=== PATIENT | female | born 2000 | race Caucasian/White ===

== ENCOUNTER 2024-10-16 13:52 | Outpatient (CLI) | payer BC, SELFPAY ==
--- NOTE | 2024-10-16 13:52 | OBADM ---
This patient, Alejandra Crocker, admitted to the OB room OB Post 116 for observation. Patient/family oriented to hospital policies and general routines including ID bracelet, bed and alarms, visiting hours, pain management, procedures, bathroom and other care routines, personal items, smoking policy, room service/diet, and visiting hours. Patient/Family are encouraged to report perceived risks to care and to ask questions if they do not understand what they are told or what they should do.
--- OUTSIDE RECORDS SUMMARY | 2024-10-16 14:00 | XMS_ITS | Clinical Summary ---
Author Organization [facility] Address [address] [place] [address] Care Team Providers Care Institutional Aide Name Role Phone Unavailable Primary Care Provider Unavailabl e Social History Tobacco Use Types Packs/Day Years Used Date Smoking Tobacco: Never Assessed Comments Unknown Sex and Gender Information Value Date Recorded Sex Assigned at Not on file Legal Sex Female 12:18 PM CDT Gender Identity Not on file Sexual Orientation Not on file Plan of Treatment Health Maintenance Due Date Last Done Comments Hepatitis C Virus (HCV) Screening 1998 Human Papillomavirus (HPV) Immunization (3 - 3-dose series) 06/03/2016 03/11/2016, 03/09/2015 Pap Smear 2019 Influenza Immunization (#1) 2024 07/29/2021 SARS-COV-2 Immunization ( season) 2024 07/29/2021, 09/17/2020, 08/20/2020 Respiratory Syncytial Virus (RSV) Immunization (Adult) (1 - 1-dose 75+ series) 2073 Hepatitis B Immunization Completed 999, 1998, 1998 DTaP/Tdap/Td Immunization Discontinued 2008, 12/12/2002, 10/29/1999, Additional history exists TdaP Immunization Completed 04/03/2009 Meningococcal Immunization (ACWY) Completed 03/09/2015, 04/03/2009 Pneumococcal Immunization Combined Aged Out No longer eligible based on patient's age to complete this topic Rotavirus Immunization Aged Out No lo nger eligible based on patient's age to complete this topic Insurance [employer] on file [employer] on file
--- OUTSIDE RECORDS SUMMARY | 2024-10-16 14:00 | XMS_ITS | Clinical Summary ---
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 Gender Identity Not on file Sexual Orientation Not on file Plan of Treatment Health Maintenance Due Date Last Done Comments Cervical Cancer Screening Pap Smear (Age 21 to 29) Every 3 Years 1998 Cervical Cancer Screening 1998 Annual Physical 2001 DTaP, Tdap and Td Vaccines (6 - Tdap) 2009 12/12/2002, 10/29/1999, 1998, Additional history exists Hepatitis C 02/20/2016 HPV Vaccines (3 - 3-dose series) 06/03/2016 03/11/2016, 03/09/2015 Hepatitis B Vaccines (1 of 3 - 19+ 3-dose series) 2017 COVID-19 Vaccine (2023- season) 2024 09/17/2020, 08/20/2020 Influenza Adult (#1) 2024 Meningococcal Vaccine Completed 03/09/2015, 009 Meningococcal B Vaccine Aged Out No l onger eligible based on patient's age to complete this topic Pneumococcal Vaccine: Pediatrics (0 to 5 Years) and At-Risk Patients (6 to 64 Years) Aged Out No longer eligible based on patient's age to complete this topic RSV Immunizations Under 20 Months Aged Out No longer eligible based on patient's age to complete this topic
[2024-10-16 14:29] VITALS: BMI 52.2
[2024-10-16 14:30] VITALS: PULSE 122
[2024-10-16 14:36] VITALS: BP 125/43; PULSE 120
[2024-10-16 14:43] LABS: Add Urine Microscopic? YES; Appearance Urine Turbid (Clear); Bacteria Urine 3+ /hpf; Bilirubin Urine Negative (Negative); Blood Urine 2+ (Negative); Color Urine Yellow (Yellow); Glucose Urine UA Negative (Negative); Ketones Urine Negative (Negative); Leukocyte Esterase Ur 3+ LEU/UL (Negative); Need Manual Microscopic Reviewed; Nitrate Urine Negative (Negative); Non Pathogenic Casts 0-2; Protein Urine 2+ mg/dL (Negative); Specific Grav Ur 1.018 (1.001-1.035); Squamous Epithelial Cell Urine Moderate /hpf (Few); WBC Urine >100 /hpf (0-3); pH Urine 6.5 (5.0-9.0)
[2024-10-16 14:45] VITALS: BP 117/69; PULSE 114
[2024-10-16 15:00] VITALS: BP 114/71; BP 117/69; PULSE 114
[2024-10-16 15:24] LABS: OBXCEM ROM Plus Negative (Negative)
--- NOTE | 2024-10-24 11:11 | PM.OBTRLD ---
OB - Triage/Final Diagnosis Visit Information Reason for evaluation: threatened labor Comments/Additional reasons for admission: I have assessed the risk for this patient, Alejandra Crocker, and determined that she would benefit from observation care. Evaluation Laboratory results: Laboratory Tests 10/16/24 10/16/24 14:07 14:45 Urine Color Yellow Urine Appearance Turbid H Urine pH 6.5 Ur Specific [place] 1.018 Urine Protein 2+ H Urine Glucose (UA) Negative Urine Ketones Negative Ur Blood (Man) 2+ H Urine Nitrate Negative Urine Bilirubin Negative Urine Urobilinogen 1.0 Ur Leukocyte Esterase 3+ H Add Ur Microanalysis Reviewed Urine RBC 3-5 H Urine WBC >100 H Ur Squamous Epith Cells Moderate Urine Bacteria 3+ H Urine Casts 0-2 Membranes Rupture Rom plus negative
--- OUTSIDE RECORDS SUMMARY | 2024-10-28 10:07 | XMS_ITS | Clinical Summary ---
Author Organization [facility] Address [address] [place] [address] Care Team Providers Care Supervisor [employer] Name Role Phone Unavailable Primary Care Provider [...]
--- OUTSIDE RECORDS SUMMARY | 2024-10-28 10:07 | XMS_ITS | Clinical Summary ---
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
--- OUTSIDE RECORDS SUMMARY | 2024-10-28 10:07 | XMS_ITS | Clinical Summary ---
Author Organization [facility] Address [address] [place] [address] Care Team Providers Care Bleach Packer Name Role Phone Unknown, Provider Primary Care Provider Unavaila ble Source Comments [facility],non-owned Affiliates and Associated Physician Practices is amultiple site organization consisting of ambulatory clinics and hospital sitesin [place], [place], [place] and [place]. This disclosure is being madepursuant to the Care Everywhere program and may not contain all information available regarding this patient. Last updated 18.[facility] Allergies No known active allergies Medications Be aware that medications may not be up to date on this document. Always verify current medications with the patient. No known medications Encounters Date Type Department Care Team Description 10/19/2024 3:55 PM CDT - 10/19/2024 6:39 [place] [address] Wally Diggs MD Acute cough; Viral syndrome Discharge Disposition: Home or Self Care 10/19/2024 Travel from Last 3 Months Social History Tobacco Use Types Packs/Day Years Used Date Smoking Tobacco: Never Passive Smoke Exposure: Never Smokeless Tobacco: Never Tobacco Cessation:Counseling Given: Not Answered AUDIT-C Answer Date Recorded Q1: How often do you have a drink containing alc ohol? Never 10/19/2024 Average Number of Drinks Not on file 025 Q3: How often do you have si x or more drinks on one occasion? Never 10/19/2024 Sex and Gender Information Value Date Recorded Sex Assigned at Not on file Gender Identity Not on file Sexual Orientation Not on file Last Filed Vital Signs Vital Sign Reading Time Taken Comments Blood Pressure 122/72 10/19/2024 3:29 PM CDT Pulse 98 10/19/2024 6:20 PM CDT Temperature 36.8 C (98.3 F) 10/19/2024 6:20 PM CDT Respiratory Rate 20 10/19/2024 6:20 PM CDT Oxygen Saturation 99% 10/19/2024 6:20 PM CDT Inhaled Oxygen Concentration - - Weight 136.4 kg (300 lb 11.3 oz) 10/19/2024 3:29 PM CDT Height - - Body Mass Index - - Plan of Treatment Health Maintenance Due Date Last Done Comments PAP SMEAR 1998 HIV SCREENING 2013 HPV VACCINE (1 - 3-dose series) 2013 HEPATITIS C SCREENING 02/15/2016 DTAP/TDAP/TD VACCINES (1 - Tdap) 2017 HEPATITIS B VACCINE (1 of 3 - 19+ 3-dose series) 2017 COVID-19 VACCINE ( - 2023-2 5 season) 2024 09/17/2020, 08/20/2020 INFLUENZA VACCINE (#1) 2024 DEPRESSION SCREENING 08/03/2024 ZOSTER VACCINE (1 of 2) 02/20/2048 HIB VACCINE Aged Out No longer eligi ble based on patient's age to complete this topic MENINGOCOCCAL (Group B) VACCINE SHARED DECISION-MAKING Aged Out No longer eligible based on patient's age to complete this topic MENINGOCOCCAL GROUPS A/C/Y/W VACCINE Aged Out No longer eligible b ased on patient's age to complete this topic PNEUMOCOCCAL VACCINE Aged Out No long er eligible based on patient's age to complete this topic Procedures Procedure Name Priority Date/Time Associated Diagnosis Comments XR CHEST 2VW STAT 10/19/2024 5:41 PM CDT Acute cough SARS-COV-2 (COVID-19) FLU A/B RSV PCR RAPID STAT 10/19/2024 4:33 PM CDT from Last 3 Months Results * XR CHEST 2VW (10/19/2024 5:41 PM CDT) Anatomical Region Laterality Modality Chest Computed Radiogr aphy 10/19/2024 5:24 PM CDT Impressions 10/20/2024 8:09 AM CDT Normal chest. Reading Radiologist: AADM WATSON on 10/20/2024 at 8:09 AM Narrative 10/20/2024 8:09 AM CDT INDICATION: Acute cough COMPARISON: None available. TECHNIQUE: Frontal and lateral radiographs of the chest. FINDINGS: The heart is normal in size. The lungs are clear. There is no pneumothorax or pleural effusion. The upper abdomen is normal. No acute osseous abnormality is seen. Procedure Note Adam Watson MD - 10/20/2024 INDICATION: Acute cough COMPARISON: None available. TECHNIQUE: Frontal and lateral radiographs of the chest. FINDINGS: The heart is normal in size. The lungs are clear. There is no pneumothorax or pleural effusion. The upper abdomen is normal. No acute osseous abnormality is seen. IMPRESSION Normal chest. Reading Radiologist: ADAM WATSON on 10/20/2024 at 8:09 AM Wally Diggs MD DIAGNOSTIC IMAGING O RDERABLES * SARS-COV-2 (COVID-19) FLU A/B RSV PCR RAPID (10/19/2024 4:33 PM CDT) COVID-19 PCR Not detected Not detected 10/20/19 5:50 PM CDT [facility] Influenza A PCR Not detected Not detected 10/19/2024 5:50 PM CDT [facility] Influenza B PCR Not detected Not detected 10/19/2024 5:50 PM CDT [facility] RSV PCR Not detected Not detected 10/19/2024 5:50 PM CDT [facility] Microbiology SPECIMEN FROM NASOPHARYNGEAL STRUCTURE / Unknown Collection / Unknown 10/19/2024 4:33 PM CDT 10/19/2024 4:48 PM CDT Narrative [facility] - 10/19/2024 5:50 PM CDT This nucleic acid amplification assay has been authorized by the Food and Drug administration (FDA) under an Emergency Use Authorization (EUA). This test is only authorized for the duration of time the declaration that circumstances exist justifying the authorization of emergency use of in vitro diagnostic tests for detection of SARS-CoV-2 virus and/or diagnosis of COVID-19 infection under section 564(b)(1) of the Act, 21 U.S.C 360bbb-3 (b)(1), unless the authorization is terminated or revoked sooner. Fact Sheets for this EUA assay are available upon request. Wally Digsg MD LAB - MICROBIOLOGY O RDERABLES [facility] [address] [place] [address], [facility] [phone] from Last 3 Months Care Teams Bleach Packer Relationship Specialty Start Date End Date Unknown, Provider PCP - General 10/19/24
== END 2024-10-16 15:15 | disposition home or self-care (01) ==
LOC: ANHOBOP 10-28 09:31 → ANHOBPP 10-28 09:31
PROVIDERS: Visit Provider Obstetrics & Gynecology Gynecology
DX: O47.02 False labor before 37 completed weeks of gestation, second trimester (principal); Z3A.25 25 weeks gestation of pregnancy
CPT/HCPCS: 59025; 81001; 84112; 87086; 99199

== ENCOUNTER 2024-10-17 09:51 | Inpatient (IN) | payer BC, SELFPAY ==
[2024-10-17] VITALS (62 sets, daily range): BP systolic 72–137; BP diastolic 51–101; PULSE 101–143; RESP 18; TEMP 36.2–37.5; O2SAT 93–100; BMI 53.8; BMI 52.1
--- NOTE | ~2024-10-17 | US_ITS ---
EXAMINATION: US OB limited DATE: 10/17/2024 13:56 INDICATION: Assess well-being, amniotic fluid index and cervical length during 25th week of pre gnancy. TECHNIQUE: Real-time ultrasound of the pelvis was performed. The interpreting radiologist was not pre sent for the study. COMPARISON: None. FINDINGS: There is a single living fetus in vertex presentation. The placenta is anterior. The cervix appears short measuring approximately 0.5 cm in length. heart rate is 159 beats per minute (bpm). The a mniotic fluid index is 17.3 cm, which is normal (5th%-95%: 9.7-22.1 cm at C5 weeks estimated gestatio nal age). IMPRESSION: 1. Single living fetus in vertex presentation with heart rate of 159 bpm. 2. Significantly shortened cervical length of 0.[address] Brock discussed these findings with Dr. Henrry Spears at 2:05 PM. 3. Normal amniotic index of 17.3 cm. Reviewed, dictated and finalized at location A. IMPRESSION: 1. Single living fetus in vertex presentation with heart rate of 159 bpm . 2. Significantly shortened cervical length of 0.[address] Brock discussed th dennis findings with Dr. Henrry Spears at 2:05 PM. 3. Normal amniotic index of 17.3 cm.
--- NOTE | ~2024-10-17 | US_ITS ---
Renal-Bladder ultrasound Clinical History: Abdominal pain, UTI Technique: Real-time sonographic imaging of the kidneys and urinary bladder was performed. Findings: The right kidney measures 13.5 cm in length and the left kidney measures 13.2 cm. There is no hydronephrosis or renal calculus identified. Renal cortical echogenicity is within normal limits. No renal mass lesion is identified. The urinary bladder is moderately distended at the time of this exam. No intraluminal echoes are iden tified. No abnormal wall thickening is seen. Impression: Unremarkable ultrasound of the kidneys and urinary bladder. Reviewed, dictated and finalized at location M. Impression: Unremarkable ultrasound of the kidneys and urinary bladder.
--- NOTE | 2024-10-17 09:51 | LDADM ---
Addendum entered by Yo Baeza RN 10/17/24 16:55: Docuementation done is [employer] on arrival. Original Note: This patient, Alejandra Crocker, was admitted to Labor/Delivery/Recovery 106 on 10/17/24 at 09:51. Plans for labor, pain management and were discussed with patient. Patient/family oriented to hospital policies and general routines including ID bracelet, bed and alarms, visiting hours, pain management, procedures, bathroom and other care routines, personal items, smoking policy, room service/diet and guest tray routines, infant security routines, and visiting hours. Patient/Family are encouraged to report perceived risks to care and to ask questions if they do not understand what they are told or what they should do. See OBIX for further documentation.
--- NOTE | 2024-10-17 10:15 | PC.NURSE ---
Pt states pain is rated as 8 at its worst. States she has had cramping since Thursday and pain has not resolved since starting antibiotic yesterday. Describes pain as cramping and aching. Butler is constant but worse at times. Abdomen soft to palpation during application of TOCO and after application. Denies vaginal bleeding. Pt had ROM plus yesterday which was negative. States she has had mucous discharge. Pt appears uncomfortable with facial grimacing. Pt urine is very dark and cloudy. Pt states she has been drinkng fluid. appetite and did have nausea with vomiting yesterday.
--- NOTE | 2024-10-17 10:30 | PC.NURSE ---
1030 Patient voided approx 100 cc. urine is very cloudy, very dark. Pt states she has been drinking water.
--- NOTE | 2024-10-17 10:45 | PC.NURSE ---
Dr. Henrry Spears notified of patient arrival and pt syptoms/assessment of low abdominal cramping since Thursday, temperature, negative ROM plus yesterday, pt stating mucosy discharge. Dr. Henrry Spears aware pt on Macrobid for UTI since yesterday. Orders received.
--- OUTSIDE RECORDS SUMMARY | 2024-10-17 11:11 | XMS_ITS | Clinical Summary ---
Author Organization [facility] Address [address] [place] [address] Care Team Providers Care Exhaust And Muffler Repairer Name Role Phone Unavailable Primary Care Provider [...]
--- OUTSIDE RECORDS SUMMARY | 2024-10-17 11:11 | XMS_ITS | Clinical Summary ---
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
[2024-10-17] MEDS: HYDROcodone/acetaminophen (*CRX) 10-325 MG TABLET 1 TAB PO (11:25)
[2024-10-17] MEDS: LACTATED RINGERS 1,000 ML 999 ML IV CONT (11:26)
[2024-10-17 11:50] LABS: Hematocrit 34.7 % (37.0-47.0); Hemoglobin 11.3 g/dL (12.0-15.0); Mean Corpuscular HGB Conc 32.6 g/dl (32-36); Mean Corpuscular Volume 82.8 fl (80-100); Mean Platelet Volume 10.4 fl (7.4-10.4); Platelet Count Result 264 k/mm3 (150-375); Red Blood Count 4.19 M/mm3 (4.2-5.4); Red Cell Distribution Width 14.9 % (11.5-14.5); White Blood Count 23.7 K/mm3 (4.5-10.0)
[2024-10-17 12:02] LABS: Alanine Aminotransferase 27 U/L (6-35); Albumin Level 3.6 g/dL (3.5-5.1); Alkaline Phosphatase 102 U/L (38-126); Anion Gap 12 mmol/L (4-12); Aspartate Amino Transferase 15 U/L (14-36); Bilirubin,Total 0.9 mg/dL (0.2-1.3); Blood Urea Nitrogen 3 mg/dL (7-17); Calcium 8.7 mg/dL (8.4-10.2); Carbon Dioxide 15 mmol/L (22-30); Chloride 106 mmol/L (98-107); Estimated Glomerular Filt Rate > 60; Glucose 133 mg/dL (65-110); Potassium 3.5 mmol/L (3.4-5.0); Sodium 133 mmol/L (137-145)
--- NOTE | 2024-10-17 12:16 | PC.NURSE ---
Patient states she has dad low abdominal pain since Sunday 10/15. Was seen here yesterday for same and diagnosed UTI. Also had noted vaginal discharge at that time and had negative ROM +. Has been using Tylenol at home and has taken Macrobid RX yesterday for 2 doses.
[2024-10-17 12:33] LABS: Band Neutrophils Percent 8 % (0-6); Neutrophils Absolute Manual 22.51 K/mm3 (1.7-7.2); Neutrophils Percent Manual 87 % (46-73); Total Cells Counted 100
[2024-10-17 12:34] LABS: Lymphocytes Absolute Manual 0.71 K/mm3 (1.1-4.5); Lymphocytes Percent Manual 3 % (18-44); Monocytes Absolute Manual 0.47 K/mm3 (0.1-0.90); Monocytes Percent Manual 2 % (3-9); Platelet Estimate Adequate (Adequate); Schistocytes None Seen
--- NOTE | 2024-10-17 12:40 | PC.NURSE ---
Patient to ultrasound per wheelchair. States pain is currently 6 since taking Hydocodone. IV bolus infusing.
[2024-10-17 13:11] LABS: Trichomonas Vag PCR NOT DETECTED (NOT DETECTE)
[2024-10-17 13:34] LABS: Chlamydia trachomatis NOT DETECTED (NOT DETECTE); Neisseria gonorrhoeae PCR NOT DETECTED (NOT DETECTE)
[2024-10-17] MEDS: AMPICILLIN 2 GM/NS 100 ML 2 GM/100 ML BAG 100 GM (14:23)
--- NOTE | 2024-10-17 14:23 | PM.IMHP ---
H&P: HPI History of Present Illness Date/Time: 10/17/24 14:23 Chief Complaint: Pelvic pain labor at 25 and half weeks Narrative: 24-year-old 1 para 0 whose last menstrual was 04/21/2024, EDC is 01/26/2025, confirmed by 7 week ultrasound presents at 25 and half weeks gestation with rupture of the membranes. She thought she had a UTI. She is now 7cm and spontaneously ruptured. Review of Systems Review of Systems: All systems reviewed & are unremarkable except as noted in HPI and below [facility] [place] Surgical History Surgical History History of tympanostomy tube placement (~2006) Family History Family History Grandparent Lung cancer Father Hypertension Mother Anxiety Other Diabetes mellitus Social History Social History Social History: works as foster care manager sterile processing Smoking packs per day: 0 Smoking cigarettes per day: 0.0 Years smoked: 0 Smoking pack-years: 0.00 Smoking status: Never smoker Alcohol intake: never Substance use: current Substance use type: marijuana Other substance usage details: 2-3 times per week Lack of Transportation: No Lack of Food: Never True Current Housing: I Have Housing Concerned About Future Housing: No Difficulty Paying Gas/Electric Bills: No Difficulty Paying for Meds: No Currently Unemployed: No Education: Master's Degree or Higher Difficulty w/ Childcare or Family Care: No Living arrangements: with roommate(s) Additional living arrangements comments: Lives with boyfriend. 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 Gender identity (if verbalized by the patient): Female Sexual Orientation (if Verbalized by the Patient): Straight or Heterosexual Meds Home Medications and Allergies Home Medications ?Medication ?Instructions ?Recorded ?Confirmed ?Type No Home Medications 10/16/24 10/16/24 History nitrofurantoin 100 mg PO Q12H 3 days #6 caps 10/16/24 Rx monohydrate/macrocrystals 100 mg capsule (Macrobid) Allergies Allergy/AdvReac Type Severity Reaction Status Date / Time No Known Allergies Allergy Unknown Unverified 10/16/24 15:03 Vital Signs Vital Signs - 24 hr 10/17/24 10:06 10/17/24 10:15 10/17/24 10:30 Pulse Rate 122 H 119 H 117 H Blood Pressure 132/70 120/65 112/63 Oxygen Delivery 10/17/24 10:45 10/17/24 11:00 10/17/24 12:05 Pulse Rate 121 H 122 H Blood Pressure 121/63 124/72 Oxygen Delivery Room Air Exam Const: General: cooperative and healthy appearing Nutritional Appearance: overweight Orientation/consciousness: oriented to person, oriented to place and oriented to time HENMT: Head: normal to inspection Resp: Effort & Inspection: normal respiratory effort Cardio: Rate: regular rate Rhythm: regular rhythm Heart sounds: S1 normal heart sound present and S2 normal heart sound present GI: Inspection: normal to inspection (Gravid uterus) : External Female Exam: normal external appearance Speculum Exam - Vagina: normal appearance of the vagina Speculum Exam - Cervix: normal appearance of the cervix (Cervix 700% clear fluid seen heart tones present) H&P: Results Labs Labs: Short CBC 10/17/24 Range/Units 11:21 WBC 23.7 H (4.5-10.0) K/mm3 Hgb 11.3 L (12.0-15.0) g/dL Hct 34.7 L (37.0-47.0) % Plt Count 264 (150-375) k/mm3 BMP 10/17/24 11:21 Sodium 133 L Potassium 3.5 Chloride 106 Carbon Dioxide 15 L BUN 3 L Creatinine 0.45 L Glucose 133 H Calcium 8.7 Liver Function 10/17/24 Range/Units 11:21 Total Bilirubin 0.9 (0.2-1.3) mg/dL AST 15 (14-36) U/L ALT 27 (6-35) U/L Alkaline Phosphatase 102 (38-126) U/L Albumin 3.6 (3.5-5.1) g/dL Assessment and Plan Assessment and plan (1) premature rupture of membranes: Code(s): O42.919 - premature rupture of membranes, unspecified as to length of time between rupture and onset of labor, unspecified trimester Status: Acute (2) labor: Code(s): O60.00 - labor without delivery, unspecified trimester Status: Acute (3) Morbid obesity with body mass index (BMI) of 50.0 to 59.9 in adult: Code(s): E66.01 - Morbid (severe) obesity due to excess calories; Z68.43 - Body mass index [BMI] 50.0-59.9, adult Status: Acute Plan Imminent spontaneous vaginal delivery expected
[2024-10-17] MEDS: OXYTOCIN 30 UNITS/NS 500 ML 30 UNITS/500 ML BAG 999 UNITS (14:40)
--- NOTE | 2024-10-17 14:46 | PM.OBPRVD ---
OB - Vaginal Delivery Note Procedure Delivery date: 10/17/24 Events: Premature Rupture of Membranes Induction method: None Delivery monitor: External FHT and External Uterine Route of delivery: Episiotomy description: None Laceration Description: None Specimen: No Quantitative Blood Loss (ml): 262 Anesthesia type: None Disposition: Floor Complications: No immediate complications Narrative: Patient was admitted at 25 weeks gestation complaining of cramping and discomfort she immediately ruptured membranes was noted to be 7cm. Peds was quickly notified and the patient spontaneously pushed the head in the INES position. Anterior posterior shoulder delivered spontaneously after relieved on a nuchal cord around the occiput the baby did have spontaneous broad sided delivery the patient did have a bit of bleeding and received Methergine and QBL was 262cc Baby Date of : 10/17/24 Time of : 14:36 Gestational Age by Date: gender: Male presentation: vertex position: Right Occiput Anterior Placenta delivery description: Spontaneous Cord Vessel Description: 3 Vessels
--- NOTE | 2024-10-17 14:48 | PM.DS ---
DS: Admitting Diagnosis Discharge Date 10/18/2024 Admitting Diagnosis 25 week rupture of membranes and labor DS: Discharge Diagnosis Discharge Diagnosis (1) premature rupture of membranes: Code(s): O42.919 - premature rupture of membranes, unspecified as to length of time between rupture and onset of labor, unspecified trimester Status: Acute (2) labor: Code(s): O60.00 - labor without delivery, unspecified trimester Status: Acute DS: Summary Hospital Course Reason for hospitalization: Patient was admitted at 25 and weeks gestation and probably spontaneously ruptured delivering male infant. Hospital Course: Patient's hospital course unremarkable she remained afebrile. She was up, voiding without difficulty, eating regular diet, ambulating, generally without complaints. Time Spent with Patient Time attestation: Total time spent providing and/or coordinating discharge services: Exam Const: General: cooperative, healthy appearing and comfortable Nutritional Appearance: overweight Orientation/consciousness: oriented to person, oriented to place and oriented to time HENMT: Head: normal to inspection Resp: Effort & Inspection: normal respiratory effort Cardio: Rate: regular rate Rhythm: regular rhythm Heart sounds: S1 normal heart sound present and S2 normal heart sound present GI: Inspection: normal to inspection (Fundus firm below umbilicus) DS: Data Data Completed and Pending Labs on day of discharge: Labs from last 24 hours 10/17/24 10/17/24 11:51 11:21 WBC 23.7 H RBC 4.19 L Hgb 11.3 L Hct 34.7 L MCV 82.8 MCH 27.0 MCHC 32.6 RDW 14.9 H Plt Count 264 MPV 10.4 Immature Gran % (Auto) Not Reportable Neut % (Auto) Not Reportable Lymph % (Auto) Not Reportable [place] % (Auto) Not Reportable Eos % (Auto) Not Reportable Baso % (Auto) Not Reportable Lymph # (Auto) Not Reportable [place] # (Auto) Not Reportable Eos # (Auto) Not Reportable Baso # (Auto) Not Reportable Abs Immat Gran (auto) Not Reportable Absolute Neuts (auto) Not Reportable Absolute Nucleated RBC Not Reportable Total Counted 100 Neutrophils % (Manual) 87 H Band Neutrophils % 8 H Lymphocytes % (Manual) 3 L Monocytes % (Manual) 2 L Nucleated RBC % Not Reportable Abs Neuts (Manual) 22.51 H Abs Lymphs (Manual) 0.71 L Abs Monocytes (Manual) 0.47 Platelet Estimate Adequate Schistocytes None seen Sodium 133 L Potassium 3.5 Chloride 106 Carbon Dioxide 15 L Anion Gap 12 BUN 3 L Creatinine 0.45 L Estim Creat Clear Calc Not Reportable Estimated GFR > 60 Glucose 133 H Calcium 8.7 Total Bilirubin 0.9 AST 15 ALT 27 Alkaline Phosphatase 102 Total Protein 7.0 Albumin 3.6 C. trachomatis (PCR) Not detected N. gonorrhoeae (PCR) Not detected T. vaginalis (PCR) Not detected Discharge Plan Discharge Attending physician on discharge: Wally Palacios Discharging Clinician: Wally Palacios Patient Disposition: Home, Self-Care Activity: no straining and pelvic rest Diet: heart healthy Wound Care Instructions: follow printed instructions Patient Instructions: Antibiotic Form Patient Language: Vincentian Stand Alone Forms: General Discharge Information Follow-up/Referrals: Wally Palacios MD [Physician] - Discharge Medications: No Action No Home Medications nitrofurantoin monohyd/m-cryst [Macrobid] 100 mg capsule 100 mg PO Q12H 3 Days Qty: 6 0RF Rx Instructions: must administer with a meal/food Date of admission: 10/17/24 09:51 Primary Care Provider: PHYSICIAN,LEAD TECHNICIAN Admitting Provider: Tavo Palma Attending physician on admission: Tavo Palma Condition: Stable
[2024-10-17] MEDS: fentaNYL CITRATE INJ (*CRX) 100 MCG/2 ML VIAL (15:58)
[2024-10-17] MEDS: IBUPROFEN 600 MG TABLET PO (17:01)
--- NOTE | 2024-10-17 17:28 | LDADM ---
This patient, Alejandra Crocker, was admitted to Labor/Delivery/Recovery 106 on 10/17/24 at 09:51. Plans for labor, pain management and were discussed with patient. Patient/family oriented to hospital policies and general routines including ID bracelet, bed and alarms, visiting hours, pain management, procedures, bathroom and other care routines, personal items, smoking policy, room service/diet and guest tray routines, infant security routines, and visiting hours. Patient/Family are encouraged to report perceived risks to care and to ask questions if they do not understand what they are told or what they should do. See OBIX for further documentation.
[2024-10-17 20:36] LABS: Syphilis IgG/IgM Antibody Negative (Negative)
[2024-10-17 20:42] LABS: HIV 1/2 Ab P24 Ag Result Negative (Negative)
--- NOTE | 2024-10-17 21:30 | PC.NURSE ---
Breast pump provided due to baby was born at 25 4/7 weeks and transferred to [facility]. Instructions given on cleaning, care, usage, that there should be no pain, pumping schedule for milk production, collection, and storage of human milk. Patient was assessed for correct placement, flange size, to pump for comfort and nipple stretching/stimulation for adequate milk production every 3 hours (8 times in 24 hours) 1-2 times at night. Parents are encouraged to record the pumping schedule on the feeding sheet.?Mother voiced understanding of the education shared along with mom/baby guide and the pump measurement, flange fit handout for additional resource information. Primary RN in room as well.
[2024-10-18] VITALS (7 sets, daily range): BP systolic 104–138; BP diastolic 49–74; PULSE 93–145; RESP 16–22; TEMP 35.9–37.8; O2SAT 98–100
[2024-10-18 05:07] LABS: Hematocrit 31.9 % (37.0-47.0)
[2024-10-18] MEDS: IBUPROFEN 600 MG TABLET PO ×2 (06:15→12:54)
[2024-10-18] MEDS: MULTIVIT/MIN/PREN/FOL AC/IRON TABLET 1 TAB PO (07:29)
[2024-10-18] MEDS: DOCUSATE SODIUM 100 MG CAPSULE PO (07:29)
[2024-10-18] MEDS: POLYSACCHARIDE IRON COMPLEX 150 MG CAPSULE PO (07:29)
--- NOTE | 2024-10-18 07:50 | PM.OBPNVD ---
OB - PN: Subj Subjective Date/time seen: 10/18/24 07:50 Patient comments: no complaints, pain well controlled and tolerating diet OB - PN: Obj Data Labs 10/18/24 05:01 10/17/24 11:21 Labs: Laboratory Results - last 24 hr 10/17/24 10/17/24 10/17/24 11:21 11:51 18:27 WBC 23.7 H RBC 4.19 L Hgb 11.3 L Hct 34.7 L MCV 82.8 MCH 27.0 MCHC 32.6 RDW 14.9 H Plt Count 264 MPV 10.4 Immature Gran % (Auto) Not Reportable Neut % (Auto) Not Reportable Lymph % (Auto) Not Reportable [place] % (Auto) Not Reportable Eos % (Auto) Not Reportable Baso % (Auto) Not Reportable Lymph # (Auto) Not Reportable [place] # (Auto) Not Reportable Eos # (Auto) Not Reportable Baso # (Auto) Not Reportable Abs Immat Gran (auto) Not Reportable Absolute Neuts (auto) Not Reportable Absolute Nucleated RBC Not Reportable Total Counted 100 Neutrophils % (Manual) 87 H Band Neutrophils % 8 H Lymphocytes % (Manual) 3 L Monocytes % (Manual) 2 L Nucleated RBC % Not Reportable Abs Neuts (Manual) 22.51 H Abs Lymphs (Manual) 0.71 L Abs Monocytes (Manual) 0.47 Platelet Estimate Adequate Schistocytes None seen Sodium 133 L Potassium 3.5 Chloride 106 Carbon Dioxide 15 L Anion Gap 12 BUN 3 L Creatinine 0.45 L Estim Creat Clear Calc Not Reportable Estimated GFR > 60 Glucose 133 H Calcium 8.7 Total Bilirubin 0.9 AST 15 ALT 27 Alkaline Phosphatase 102 Total Protein 7.0 Albumin 3.6 Syphilis IgG/IgM Ab Negative C. trachomatis (PCR) Not detected HIV 1&2 Ab/P24 Ag 4thGn Negative N. gonorrhoeae (PCR) Not detected T. vaginalis (PCR) Not detected Blood Type A Positive Antibody Screen Negative 10/18/24 05:01 WBC RBC Hgb 10.0 L Hct 31.9 L MCV MCH MCHC RDW Plt Count MPV Immature Gran % (Auto) Neut % (Auto) Lymph % (Auto) [place] % (Auto) Eos % (Auto) Baso % (Auto) Lymph # (Auto) [place] # (Auto) Eos # (Auto) Baso # (Auto) Abs Immat Gran (auto) Absolute Neuts (auto) Absolute Nucleated RBC Total Counted Neutrophils % (Manual) Band Neutrophils % Lymphocytes % (Manual) Monocytes % (Manual) Nucleated RBC % Abs Neuts (Manual) Abs Lymphs (Manual) Abs Monocytes (Manual) Platelet Estimate Schistocytes Sodium Potassium Chloride Carbon Dioxide Anion Gap BUN Creatinine Estim Creat Clear Calc Estimated GFR Glucose Calcium Total Bilirubin AST ALT Alkaline Phosphatase Total Protein Albumin Syphilis IgG/IgM Ab C. trachomatis (PCR) HIV 1&2 Ab/P24 Ag 4thGn N. gonorrhoeae (PCR) T. vaginalis (PCR) Blood Type Antibody Screen Imaging Radiologist's impression: Impressions Obstetrics Ultrasound 10/17/24 14:00 IMPRESSION: 1. Single living fetus in vertex presentation with heart rate of 159 bpm. 2. Significantly shortened cervical length of 0.[address] Brock discussed these findings with Dr. Henrry Spears at 2:05 PM. 3. Normal amniotic index of 17.3 cm. Renal Ultrasound 10/17/24 14:17 Impression: Unremarkable ultrasound of the kidneys and urinary bladder. OB - PN A/P Assessment and Plan (1) premature rupture of membranes: Code(s): O42.919 - premature rupture of membranes, unspecified as to length of time between rupture and onset of labor, unspecified trimester Status: Acute (2) labor: Code(s): O60.00 - labor without delivery, unspecified trimester Status: Acute Plan home Time Spent With Patient Time: Total time spent is greater than 50% in coordination of care (as documented) at patient's floor/unit and/or counseling patient: Review of Systems Review of Systems: All systems reviewed & are unremarkable except as noted in HPI and below Exam Const: General: cooperative, healthy appearing and comfortable Nutritional Appearance: average body habitus Orientation/consciousness: oriented to person, oriented to place and oriented to time HENMT: Head: normal to inspection Resp: Effort & Inspection: normal respiratory effort Cardio: Rate: regular rate Rhythm: regular rhythm Heart sounds: S1 normal heart sound present and S2 normal heart sound present GI: Inspection: normal to inspection
--- NOTE | 2024-10-18 09:35 | PC.NURSE ---
0805: Breast pump given overnight and education provided by overnight RN, patient denies questions in regards to pumping. Patient states that she will be getting a breast pump through her insurance but does not have one readily available once she is home. Discussed the insurance breast pumps that we have available with patient and reviewed the pumps available through insurance that we would be able to send home with her upon discharge. Patient will review both options available and update this RN with how she would like to proceed once she has reviewed the pumps. Patient also aware that she needs a size 19mm flange, which is not available at this time.
--- NOTE | 2024-10-18 10:05 | PC.NURSE ---
Insurance pump provided - [employer] (Pump [employer]). Pump assembled with mother and education provided. Mother states understanding.
--- OUTSIDE RECORDS SUMMARY | 2024-10-18 10:19 | XMS_ITS | Clinical Summary ---
Author Organization [facility] Address [address] [place] [address] Care Team Providers Care Environmental Designer Name Role Phone Unavailable Primary Care Provider [...]
--- OUTSIDE RECORDS SUMMARY | 2024-10-18 10:19 | XMS_ITS | Clinical Summary ---
Author Organization 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
[2024-10-18] MEDS: ACETAMINOPHEN 325 MG TABLET 650 MG PO (10:58)
--- NOTE | 2024-10-18 13:20 | PC.NURSE ---
Patient to discharge today. MD Henrry Spears notified of patient's shivers/blood clot/symptoms this AM, and reported back that patient is still okay to discharge as long as no more clots and vital signs remain stable. Patient given more time by RN, monitored, vital signs charted. Patient feeling better overall and requests D/C. Discharge paperwork completed with patient and verbalized understanding to call OB office/return if any symptoms arise.
[2024-10-20 10:46] VITALS: BP 117/69; PULSE 101; RESP 18; TEMP 36.5; O2SAT 100
== END 2024-10-18 14:12 | disposition home or self-care (01) | DRG 806 ==
LOC: ANHLDR 14:51 → ANHOB2 10-18 07:22 → ANHLDR 10-19 09:38 → ANHOB2 10-19 09:38 → ANHOBPP 10-19 09:38
PROVIDERS: Admitting Provider Obstetrics & Gynecology; Visit Provider Obstetrics & Gynecology
DX: O75.3 Other infection during labor (principal); N39.0 Urinary tract infection, site not specified; Z37.0 Single live birth; O42.912 Preterm premature rupture of membranes, unspecified as to length of time between rupture and onset of labor, second trimester; O99.214 Obesity complicating childbirth; E66.01 Morbid (severe) obesity due to excess calories; O69.82X0 Labor and delivery complicated by other cord entanglement, without compression, not applicable or unspecified; Z3A.25 25 weeks gestation of pregnancy
CPT/HCPCS: 36415; 76775; 76815; 76817; 80053; 85014; 85018; 85025; 85460; 86593; 86703; 86850; 86900; 86901; 87491; 87591; 87661; A9270; G0432; J0290; J0696; J2590; J3010; J7120